=== PATIENT | female | born 1995 | race Native Hawaiian/Other Pacific Islander ===

== ENCOUNTER 2017-07-17 19:10 | Emergency (ER) | payer OTHER, SELFPAY ==
[2017-07-17 19:52] VITALS: BP 120/76; PULSE 88; RESP 18; TEMP 98.3; O2SAT 100
--- NOTE | 2017-07-17 21:11 | C.PDOC ---
History Of Present Illness 21 yr old female presents to the ER with complaints of lower abdominal pain for 1 week and vaginal spotting which started today. Patient states her menses have been irregular for the past 2 months. Patient was seen by her PCP Dr. Kim, had outpatient blood work and ultrasound done, was told she has ovarian cyst. Patient comes into ER today because of abdominal pain and because of vaginal spotting. She states her menses is due next week. She states Dr Kim told her to come to ED if pain severe. She has not taken any pain medication. Denies fever, chills, nausea, vomiting, diarrhea, dysuria. 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 Patient was seen by PCP Dr Mert Kim. Patient has copy of Lab, US and CT A/P results with her. Time Seen by Provider: 07/17/17 20:58 Chief Complaint (Nursing): Abdominal Pain History Per: Patient History/Exam Limitations: no limitations Onset/Duration Of Symptoms: Days Past Medical History Reviewed: Historical Data, Nursing Documentation, Vital Signs Vital Signs: Last Vital Signs Temp 98.3 F 07/17/17 19:47 Pulse 88 07/17/17 19:47 Resp 18 07/17/17 19:47 BP 120/76 07/17/17 19:47 Pulse Ox 100 07/17/17 21:36 - Medical History PMH: No Chronic Diseases Surgical History: No Surg Hx Family History: States: No Known Family Hx - Social History Hx Alcohol Use: Yes Hx Substance Use: No - Immunization History Hx Tetanus Toxoid Vaccination: No Hx Influenza Vaccination: No Hx Pneumococcal Vaccination: No Review Of Systems Constitutional: Negative for: Fever, Chills Cardiovascular: Negative for: Chest Pain, Palpitations, Paroxysmal Noc. Dyspnea Respiratory: Negative for: Shortness of Breath Gastrointestinal: Positive for: Abdominal Pain (lower). Negative for: Nausea, Vomiting, Diarrhea Genitourinary: Positive for: Vaginal Bleeding (spotting). Negative for: Dysuria Musculoskeletal: Negative for: Back Pain Neurological: Negative for: Headache Physical Exam - Physical Exam Appears: Non-toxic, No Acute Distress Skin: Warm, Dry, No Rash Head: Atraumatic, Normacephalic Eye(s): bilateral: Normal Inspection, EOMI Oral Mucosa: Moist Neck: Normal ROM Chest: Symmetrical Cardiovascular: Rhythm Regular, No Murmur Respiratory: Normal Breath Sounds, No Rales, No Rhonchi, No Stridor, No Wheezing Gastrointestinal/Abdominal: Tenderness (mild tenderness to lower abdomen and suprapubic area), No Guarding, No Rebound, Other (large gravid appearing abdomen , soft but firm) Extremity: Normal ROM, No Swelling Neurological/Psych: Oriented x3, Normal Speech Gait: Steady ED Course And Treatment O2 Sat by Pulse Oximetry: 100 (RA) Pulse Ox Interpretation: Normal Medical Decision Making Medical Decision Making: Patient has copy of Lab, US and CT A/P results with her from Dr Kim Labs WNL, low Vit D. UA normal, neg Ultrasound: Massive cystic appearing mass expanding abdomen and pelvis -at least 30 cm in size. Its full extent is not visually included on this exam. A limited view of the pelvis identifies the bladder and uterus both unremarkable ; neither ovary could be identified. Ovarian origin is favored. A huge mesenteric cystic mass is another consideration. Further imaging evaluation recommended -a CT abdomen and pelvis with without and with IV contrast enhancement versus an MRI of the abdomen and pelvis without with contrast enhancement towards this CT A/P W/WO Contrast: 14.4 x 22.1 x 29.8 cm cystic mass with thin septations arising from the pelvis as above, suspected right ovarian origin. No enhancing nodular component evident. No associated calcifications are appreciated. Rule out malignant neoplasm. Probable small left ovarian cyst. Trace pelvic free fluid, cul-de-sac. May be physiologic. Spoke to Dr. Kim who states he did not sent the patient to ER, he states she needs to follow up with OBGYN outpatient. Patient remained afebrile, and in no acute distress. I explained to the patient the results of her US and CT and answered her questions. I instructed her to follow up with director of community services in timely manner as she needs further evaluation. Recommend analgesics as needed. Patient stable for discharge. Disposition Counseled Patient/Family Regarding: Diagnosis, Need For Followup - Disposition [facility] [Outside] [facility] [Outside] Freida Kim MD [Staff Provider] - Disposition: HOME/ ROUTINE Disposition Time: 21:24 Condition: GOOD Additional Instructions: Your CT shows cystic mass and it is very important that you follow up in timely manner with an director of community services for further evaluation. Please follow up with Dr Kim or call our clinic to schedule appointment with director of community services. You may call [employer] for any assistance [phone]. 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 - Scribe Statement The provider has reviewed the documentation as recorded by the Scribe Yohana Phan All medical record entries made by the [place] were at my direction and personally dictated by me. I have reviewed the chart and agree that the record accurately reflects my personal performance of the history, physical exam, medical decision making, and the department course for this patient. I have also personally directed, reviewed, and agree with the discharge instructions and disposition.
== END 2017-07-17 22:03 | disposition home or self-care (01) ==
LOC: C.ER 19:10
DX: R10.9 Unspecified abdominal pain (principal); N83.209 Unspecified ovarian cyst, unspecified side